=== PATIENT | male | born 1990 | race Caucasian/White ===

== ENCOUNTER 2020-10-24 13:38 | Emergency (ER) | payer OTHER ==
[2020-10-24] MEDS ORDERED: AUGMENTIN 875-1 EACH PO (15:50)
== END 2020-10-24 16:09 | disposition home or self-care (01) ==
LOC: ER1 13:38
DX: S81.851A Open bite, right lower leg, initial encounter (principal); W54.0XXA Bitten by dog, initial encounter; Y92.410 Unspecified street and highway as the place of occurrence of the external cause
CPT/HCPCS: 12032; 73590; 90471; 99283